=== PATIENT | female | born 1950 | race Caucasian/White ===

== ENCOUNTER 2019-12-13 14:06 | Emergency (ER) | payer MEDICARE, BC ==
[~2019-12-13] VITALS: Ht 160 cm; Wt 113.6 kg
[2019-12-13] MEDS ORDERED: orphenadrine citrate 60mg/2ml inj. IM ONE (15:45)
[2019-12-13] MEDS ORDERED: ketorolac tromethamine 15mg/ml inj. IM ONE (15:45)
[2019-12-13] MEDS ORDERED: CYCL-1 PO (15:56)
== END 2019-12-13 16:35 | disposition home or self-care (01) ==
LOC: ER 14:09 → MERGE 14:09 → ER 16:35
DX: M54.42 Lumbago with sciatica, left side (principal)
CPT/HCPCS: 96372; 99284; J1885; J2360

== ENCOUNTER 2024-04-02 15:08 | Emergency (ER) | payer MEDICARE, BC ==
[~2024-04-02] VITALS: Ht 160 cm; Wt 95.6 kg
[~2024-04-02 15:08] MED LIST: CYCL-1 PO
[2024-04-02 16:34] LABS: BASOPHILS % (AUTO) 0.3 % (0-1); EOSINOPHILS # (AUTO) 0.2 X10'3 (0-0.9); EOSINOPHILS % (AUTO) 2.3 % (0-6); LYMPHOCYTES # (AUTO) 1.7 X10'3 (1.1-4.8); LYMPHOCYTES % (AUTO) 18.2 % (21-51); MEAN CORPUSCULAR HEMOGLOBIN 20.7 PG (27.0-31.0); MEAN CORPUSCULAR HGB CONC 28.6 g/dL (33.0-36.5); MEAN CORPUSCULAR VOLUME 72.2 FL (78-98); MEAN PLATELET VOLUME 7.8 FL (7.4-10.4); MONOCYTES # (AUTO) 0.6 X10'3 (0-0.9); NEUTROPHILS # (AUTO) 6.6 X10'3 (1.8-7.7); NEUTROPHILS % (AUTO) 72.2 % (42-75); PLATELET COUNT 457 X10'3 (140-440); RED BLOOD COUNT 2.78 X10'6 (4.20-5.60); RED CELL DISTRIBUTION WIDTH 24.7 % (11.5-14.5); WHITE BLOOD COUNT 9.1 X10'3 (4.5-11.0)
[2024-04-02 16:39] LABS: HEMATOCRIT 20.1 % (35.0-45.0); HEMOGLOBIN 5.7 g/dl (12.0-16.0)
[2024-04-02 16:44] LABS: APTT 28 SECONDS (22-32); INR 1.1 INR; PROTHROMBIN TIME 11.5 SECONDS (9.0-12.0)
[2024-04-02 16:52] LABS: ALANINE AMINOTRANSFERASE 14 U/L (12-78); ALBUMIN 2.9 G/DL (3.4-5.0); ALBUMIN/GLOBULIN RATIO 0.8 (1.1-1.5); ALKALINE PHOSPHATASE 66 IU/L (46-116); ANION GAP 7 (8-16); ASPARTATE AMINO TRANSFERASE 13 U/L (10-37); BILIRUBIN,TOTAL 0.3 MG/DL (0.1-1.0); BLOOD UREA NITROGEN 9 MG/DL (7-18); BUN/CREATININE RATIO 11.7 (10.0-20.0); CALCIUM 8.9 MG/DL (8.5-10.1); CHLORIDE 109 MMOL/L (99-107); CREATININE 0.77 MG/DL (0.40-0.90); GLUCOSE 116 MG/DL (70-104); POTASSIUM 4.1 MMOL/L (3.5-5.1); SODIUM 144 MMOL/L (135-145); TOTAL PROTEIN 6.5 G/DL (6.4-8.2); eCRCL 54 ML/MIN; eGFR 73 ML/MIN
[2024-04-02 17:05] LABS: ANISOCYTOSIS 3+; HYPOCHROMASIA 2+; MICROCYTOSIS 1+; PLATELET ESTIMATE INCREASED; POLYCHROMASIA FEW; STOMATOCYTES FEW; TARGET CELLS FEW; TEAR DROP CELLS FEW
[2024-04-02 17:06] LABS: ELLIPTOCYTES FEW
[2024-04-02] MEDS ORDERED: iohexol 300mg/ml 100ml inj. ONE (17:20)
[2024-04-02] MEDS: pantoprazole 40 MG vial IV ONE (17:25)
[2024-04-02 17:55] VITALS: BP 135/53; PULSE 70; RESP 15; TEMP 97.7
[2024-04-02 18:15] VITALS: BP 152/56; PULSE 65; RESP 14; TEMP 98
[2024-04-02 19:12] VITALS: BP 150/70; PULSE 67; RESP 15; TEMP 97.9
[2024-04-02 19:40] VITALS: BP 137/48; PULSE 65; RESP 12; TEMP 98.5
[2024-04-02 21:04] VITALS: BP 140/60; PULSE 69; RESP 16; TEMP 98
[2024-04-02 23:14] LABS: HEMATOCRIT 26.2 % (35.0-45.0); HEMOGLOBIN 8.2 g/dl (12.0-16.0); MEAN CORPUSCULAR HGB CONC 31.2 g/dL (33.0-36.5); MEAN CORPUSCULAR VOLUME 76.7 FL (78-98); MEAN PLATELET VOLUME 7.9 FL (7.4-10.4); PLATELET COUNT 417 X10'3 (140-440); RED BLOOD COUNT 3.42 X10'6 (4.20-5.60); RED CELL DISTRIBUTION WIDTH 25.4 % (11.5-14.5); WHITE BLOOD COUNT 10.2 X10'3 (4.5-11.0)
[2024-04-02 23:55] VITALS: BP 140/60; PULSE 66; RESP 16; TEMP 98.2; O2SAT 99
== END 2024-04-02 23:57 | disposition home or self-care (01) ==
LOC: ER 15:09
DX: D50.0 Iron deficiency anemia secondary to blood loss (chronic) (principal); C55 Malignant neoplasm of uterus, part unspecified; R79.1 Abnormal coagulation profile; Z79.899 Other long term (current) drug therapy
CPT/HCPCS: 36415; 36430; 74177; 76856; 80053; 85008; 85025; 85027; 85610; 85730; 86885; 86900; 86901; 86920; 96374; 99291; J2470; J7040; P9016; Q9967

== ENCOUNTER 2024-05-12 09:58 | Emergency (ER) | payer MEDICARE, BC ==
[~2024-05-12] VITALS: Ht 157.5 cm; Wt 91.8 kg
[2024-05-12 11:16] LABS: ALANINE AMINOTRANSFERASE 15 U/L (12-78); ALBUMIN/GLOBULIN RATIO 0.7 (1.1-1.5); ALKALINE PHOSPHATASE 73 IU/L (46-116); ANION GAP 8 (8-16); ASPARTATE AMINO TRANSFERASE 15 U/L (10-37); BILIRUBIN,TOTAL 0.4 MG/DL (0.1-1.0); BLOOD UREA NITROGEN 7 MG/DL (7-18); BUN/CREATININE RATIO 9.3 (10.0-20.0); CALCIUM 9.4 MG/DL (8.5-10.1); CHLORIDE 105 MMOL/L (99-107); CREATININE 0.75 MG/DL (0.40-0.90); GLUCOSE 130 MG/DL (70-104); SODIUM 140 MMOL/L (135-145); TOTAL CARBON DIOXIDE 27.2 MMOL/L (24-32); TOTAL PROTEIN 7.2 G/DL (6.4-8.2); eCRCL 53 ML/MIN; eGFR 76 ML/MIN
[2024-05-12 11:18] LABS: BASOPHILS % (AUTO) 0.5 % (0-1); EOSINOPHILS # (AUTO) 0.1 X10'3 (0-0.9); EOSINOPHILS % (AUTO) 1.5 % (0-6); LYMPHOCYTES # (AUTO) 1.1 X10'3 (1.1-4.8); LYMPHOCYTES % (AUTO) 11.9 % (21-51); MEAN PLATELET VOLUME 7.6 FL (7.4-10.4); MONOCYTES # (AUTO) 0.6 X10'3 (0-0.9); MONOCYTES % (AUTO) 6.1 % (2-12); NEUTROPHILS # (AUTO) 7.4 X10'3 (1.8-7.7); PLATELET COUNT 527 X10'3 (140-440); WHITE BLOOD COUNT 9.3 X10'3 (4.5-11.0)
[2024-05-12 11:38] LABS: HEMATOCRIT 24.3 % (35.0-45.0); HEMOGLOBIN 7.6 g/dl (12.0-16.0); MEAN CORPUSCULAR HEMOGLOBIN 21.5 PG (27.0-31.0); MEAN CORPUSCULAR HGB CONC 31.3 g/dL (33.0-36.5); MEAN CORPUSCULAR VOLUME 68.6 FL (78-98); RED BLOOD COUNT 3.53 X10'6 (4.20-5.60); RED CELL DISTRIBUTION WIDTH 21.3 % (11.5-14.5)
[2024-05-12 12:16] LABS: % IRON SATURATION 4 % (11-46); IRON 16 UG/DL (49-151); TOTAL IRON BINDING CAPACITY 358 UG/DL (259-388)
[2024-05-12 12:29] LABS: FERRITIN 12 NG/ML (8-252)
[2024-05-12] MEDS ORDERED: IRON SUCROSE COMPLEX IV ONE (12:45)
[2024-05-12] MEDS ORDERED: NORMAL SALINE IV ONE (12:45)
[2024-05-12 12:55] LABS: ANISOCYTOSIS 3+; MICROCYTOSIS 2+; PLATELET ESTIMATE INCREASED
[2024-05-12 12:56] LABS: HYPOCHROMASIA 2+
[2024-05-12 12:57] LABS: ELLIPTOCYTES FEW; SCHISTOCYTES FEW
[2024-05-12] MEDS: iron sucrose complex injection 200 MG in normal saline 100ml IV soln 100 ML IV ONE (14:38)
[2024-05-12 14:44] VITALS: BP 118/57; PULSE 66; RESP 16; TEMP 98.1; O2SAT 99
== END 2024-05-12 16:46 | disposition home or self-care (01) ==
LOC: ER 09:58
DX: D50.9 Iron deficiency anemia, unspecified (principal); Z79.899 Other long term (current) drug therapy; Z72.89 Other problems related to lifestyle; Z90.710 Acquired absence of both cervix and uterus
CPT/HCPCS: 36415; 80053; 82728; 83540; 83550; 85008; 85025; 86885; 86900; 86901; 96365; 96366; 99284; J1756; 99283

== ENCOUNTER 2024-06-25 10:05 | Outpatient (CLI) | payer MEDICARE, BC ==
[2024-06-25] MEDS ORDERED: iohexol 300mg/ml 100ml inj. ONE (10:44)
== END 2024-06-25 23:59 | disposition home or self-care (01) ==
LOC: RAD 10:05
PROVIDERS: ATTEND Student in an Organized Health Care Education/Training Program
DX: C80.1 Malignant (primary) neoplasm, unspecified (principal); K80.20 Calculus of gallbladder without cholecystitis without obstruction; N28.1 Cyst of kidney, acquired; I89.8 Other specified noninfective disorders of lymphatic vessels and lymph nodes; I70.0 Atherosclerosis of aorta; Z90.710 Acquired absence of both cervix and uterus
CPT/HCPCS: 71260; 74177; Q9967